=== PATIENT | female | born 1955 | race Caucasian/White ===

== ENCOUNTER → 2017-11-06 | Day surgery (SDC) | payer MEDICAID ==
[~2017-11-06] MED LIST: HYDROCODONE/APAP (5/325) TAB PO
[2017-11-06] MEDS: SOD CHLORIDE 0.9% 1,000 ML IV (10:00)
[2017-11-06] MEDS: CEFAZOLIN 1 GM/50 ML (PMX) 50 ML IVPB ×2 (10:00→10:30)
[2017-11-06] MEDS: SOD CHLORIDE 0.9% 500 ML (10:30)
[2017-11-06] MEDS: LIDOCAINE 1%/EPI 30 ML INJ (11:00)
[2017-11-06] MEDS: POLYMYXIN/BACITRACIN 1L IRRIG IRR (11:00)
[2017-11-06] MEDS: MIDAZOLAM 1 MG/ML 2 ML INJ (11:00)
[2017-11-06] MEDS: FENTAnyl 50 MCG/ML VIAL (11:00)
[2017-11-06] MEDS: HEPARIN 1000 UNITS/ML 10 ML INJ (11:00)
== END | disposition home or self-care (01) ==
LOC: SDS 06:47
DX: C50.911 Malignant neoplasm of unspecified site of right female breast (principal)
CPT/HCPCS: 36561; 76942; 93306